=== PATIENT | male | born 1990 | race African-American/Black ===

== ENCOUNTER 2017-08-08 09:09 | Emergency (ER) | payer MEDICAID ==
[~2017-08-08] VITALS: Ht 198.1 cm; Wt 94.0 kg
[2017-08-08 09:13] VITALS: BP 107/74
[2017-08-08] MEDS ORDERED: FLUORESCEIN SODIUM 1MG/STRIP BOTHEYE ONE (11:00)
[2017-08-08] MEDS ORDERED: TETRACAINE 0.5% OPHTH DROPS 4ML BOTHEYE ONE (11:00)
== END 2017-08-08 11:32 | disposition home or self-care (01) ==
LOC: ER 09:20
DX: S05.02XA Injury of conjunctiva and corneal abrasion without foreign body, left eye, initial encounter (principal); S05.01XA Injury of conjunctiva and corneal abrasion without foreign body, right eye, initial encounter; X58.XXXA Exposure to other specified factors, initial encounter; Y93.89 Activity, other specified; Y92.89 Other specified places as the place of occurrence of the external cause; Y99.8 Other external cause status
CPT/HCPCS: 99283